=== PATIENT | male | born 1995 ===

== ENCOUNTER 2017-12-20 12:29 | Emergency (ER) | payer MEDICAID, OTHER ==
[2017-12-20 12:37] VITALS: BMI 33.0
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
[2017-12-20 12:38] VITALS: RESP 18; O2SAT 100
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
[2017-12-20 15:00] VITALS: BP 137/62; PULSE 82; TEMP 98.2
== END 2017-12-20 15:00 | disposition home or self-care (01) ==
LOC: ED 12:29
DX: M54.2 Cervicalgia (principal); M54.5 Low back pain; V89.2XXA Person injured in unspecified motor-vehicle accident, traffic, initial encounter
CPT/HCPCS: 72125; 72131; 96372; 99285; J1885